=== PATIENT | female | born 1950 ===

== ENCOUNTER 2021-04-13 16:42 | Observation (INO) ==
[2021-04-13] MEDS ORDERED: DOCUSATE SODIUM 100 MG CAPSULE PO PRN (23:06)
[2021-04-13] MEDS ORDERED: ONDANSETRON 4 MG/2 ML VIAL IV PRN (23:06)
[2021-04-13] MEDS ORDERED: GLUCAGON 1 MG VIAL IM PRN (23:06)
[2021-04-13] MEDS ORDERED: DEXTROSE 50% 25 GM/50 ML VIAL IV PRN (23:06)
[2021-04-13] MEDS ORDERED: ENOXAPARIN 100 MG/ML SYRINGE SUBCUT ONE (23:56)
[2021-04-14] MEDS: MORPHINE 2 MG/1 ML SYRINGE IV PRN ×4 (00:15→21:05)
[2021-04-14] MEDS: ZALEPLON 5 MG CAPSULE PO PRN ×2 (00:15→23:06)
[2021-04-14] MEDS: CIPROFLOXACIN INJ 400 MG/200 ML PREMIX IV SCH ×2 (00:16→23:19)
[2021-04-14] MEDS: SODIUM CHLORIDE 0.9% 1,000 ML IV SCH ×2 (00:16→11:34)
[2021-04-14 05:29] LABS: Basophils % 0.3 % (0.0-0.8); Eosinophils # 0.2 10*3/uL (0.0-0.87); Hematocrit 32.1 VOL% (35.7-47.0); Hemoglobin 9.9 GM/DL (12.0-16.0); Immature Granulocytes % 0.3 %; Immature Granulocytes Absolute 0.04 #; Lymphocytes # 1.3 10*3/uL (1.4-4.0); Lymphocytes % 10.5 % (21.3-54.2); Mean Corpuscular HGB Conc 30.8 GM/DL (32-36); Mean Corpuscular Volume 91.5 FL (87-102); Mean Platelet Volume 10.8 FL (9.6-12.0); Monocytes % 10.1 % (1.7-12.7); Neutrophils % 76.8 % (38.7-73.9); Platelet Count 365 T/CUMM (130-400); Red Blood Count 3.51 MC/CUMM (3.8-5.5); Red Cell Distribution Width 14.5 % (9.3-17.3); White Blood Count 12.1 T/CUMM (4-12)
[2021-04-14 05:49] LABS: Calcium 8.1 MG/DL (8.5-10.1); Osmolality,Calculated 261.5 MOS/KG (273-304); Potassium 3.5 MMOL/L (3.5-5.1); Total Protein 5.9 G/DL (6.4-8.2)
[2021-04-14 05:49] LABS: INR 1.3; PT Patient Result 14.6 SECS (10.5-12.0); Partial Thromboplastin Time 38.3 SECS (23.9-33.8)
[2021-04-14] MEDS: LEVOTHYROXINE 50 MCG TABLET PO SCH (06:06)
[2021-04-14] MEDS: SERTRALINE 50 MG TABLET PO SCH (09:10)
[2021-04-14] MEDS ORDERED: ONDANSETRON 4 MG TABLET PO PRN (10:40)
[2021-04-14] MEDS ORDERED: LEVOTHYROXINE 50 MCG TABLET PO SCH (11:00)
[2021-04-14 11:42] LABS: Bacteria,Urine Occasional /HPF (Few); Bilirubin,Urine Negative (Negative); Blood, Urine Moderate mg/dL (Negative); Glucose,Urine (UA) Negative (Negative); Ketones,Urine 20 mg/dL (Negative); Mucus,Urine Occasional /LPF (Occasional); Nitrite,Urine Negative (Negative); Protein,Urine 30 MG/DL; RBC,Urine 9 /HPF (0-4); Urine Appearance Slightly Hazy (Clear); Urine Color Yellow (Yellow); Urine Specific Gravity 1.014 (1.001-1.035)
[2021-04-14] MEDS ORDERED: ceFAZolin 1,000 MG VIAL ONE (12:23)
[2021-04-14] MEDS ORDERED: DEXAMETHASONE 4 MG/1 ML VIAL ONE (12:24)
[2021-04-14] MEDS ORDERED: propofoL 200 MG/20 ML VIAL IV ONE (12:24)
[2021-04-14] MEDS ORDERED: LIDOCAINE 2% 5 ML VIAL ONE (12:24)
[2021-04-14] MEDS ORDERED: ONDANSETRON 4 MG/2 ML VIAL ONE (12:24)
[2021-04-14] MEDS ORDERED: SEVOFLURANE 1 UNIT/15 MINUTE INH ONE (12:38)
[2021-04-14] MEDS: SIMVASTATIN 40 MG TABLET PO SCH (18:25)
[2021-04-14] MEDS: ACETAMINOPHEN 325 MG TABLET PO PRN (18:25)
[2021-04-14] MEDS: APIXABAN 5 MG TABLET PO SCH (21:04)
[2021-04-15] MEDS: SODIUM CHLORIDE 0.9% 1,000 ML IV SCH ×3 (03:30→14:52)
[2021-04-15 05:17] LABS: Basophils % 0.2 % (0.0-0.8); Hematocrit 30.1 VOL% (35.7-47.0); Hemoglobin 9.8 GM/DL (12.0-16.0); Immature Granulocytes % 0.7 %; Immature Granulocytes Absolute 0.06 #; Lymphocytes # 0.8 10*3/uL (1.4-4.0); Lymphocytes % 8.5 % (21.3-54.2); Mean Corpuscular HGB Conc 32.6 GM/DL (32-36); Mean Corpuscular Volume 88.8 FL (87-102); Mean Platelet Volume 10.4 FL (9.6-12.0); Monocytes % 7.6 % (1.7-12.7); Platelet Count 356 T/CUMM (130-400); Red Blood Count 3.39 MC/CUMM (3.8-5.5); Red Cell Distribution Width 14.5 % (9.3-17.3); White Blood Count 9.2 T/CUMM (4-12)
[2021-04-15] MEDS: LEVOTHYROXINE 50 MCG TABLET PO SCH (05:28)
[2021-04-15 05:34] LABS: Calcium 7.9 MG/DL (8.5-10.1); Osmolality,Calculated 274.7 MOS/KG (273-304); Potassium 3.7 MMOL/L (3.5-5.1)
[2021-04-15 05:37] LABS: Albumin 1.9 G/DL (3.4-5.0); Calcium 8.1 MG/DL (8.5-10.1); Osmolality,Calculated 274.7 MOS/KG (273-304); Potassium 3.7 MMOL/L (3.5-5.1); Total Protein 5.9 G/DL (6.4-8.2)
[2021-04-15] MEDS: APIXABAN 5 MG TABLET PO SCH ×2 (08:14→20:38)
[2021-04-15] MEDS: SERTRALINE 50 MG TABLET PO SCH (08:14)
[2021-04-15] MEDS: HYDROmorphone 2 MG/1 ML VIAL IV PRN ×2 (13:44→21:53)
[2021-04-15] MEDS: SIMVASTATIN 40 MG TABLET PO SCH (19:12)
[2021-04-15] MEDS: CIPROFLOXACIN 500 MG TABLET PO SCH (20:38)
[2021-04-16] MEDS: SODIUM CHLORIDE 0.9% 1,000 ML IV SCH ×2 (00:46→23:45)
[2021-04-16] MEDS ORDERED: LACTULOSE 20 GM/30 ML UDCUP PO PRN (04:53)
[2021-04-16] MEDS ORDERED: SODIUM PHOSPHATE ENEMA 133 ML BOTTLE RECTAL ONE (05:30)
[2021-04-16] MEDS ORDERED: LEVOTHYROXINE 75 MCG TABLET PO SCH ×2 (06:00→10:40)
[2021-04-16 06:16] LABS: Basophils # 0.1 10*3/uL (0.0-0.2); Basophils % 0.4 % (0.0-0.8); Eosinophils # 0.4 10*3/uL (0.0-0.87); Eosinophils % 2.8 % (0.00-10.9); Hematocrit 33.9 VOL% (35.7-47.0); Hemoglobin 10.8 GM/DL (12.0-16.0); Immature Granulocytes % 0.6 %; Immature Granulocytes Absolute 0.08 #; Lymphocytes # 1.4 10*3/uL (1.4-4.0); Lymphocytes % 10.1 % (21.3-54.2); Mean Corpuscular HGB Conc 31.9 GM/DL (32-36); Mean Corpuscular Volume 90.4 FL (87-102); Mean Platelet Volume 9.9 FL (9.6-12.0); Monocytes % 10.6 % (1.7-12.7); Neutrophils % 75.5 % (38.7-73.9); Platelet Count 396 T/CUMM (130-400); Red Blood Count 3.75 MC/CUMM (3.8-5.5); Red Cell Distribution Width 14.9 % (9.3-17.3); White Blood Count 13.3 T/CUMM (4-12)
[2021-04-16 06:46] LABS: Calcium 8.2 MG/DL (8.5-10.1); Osmolality,Calculated 275.7 MOS/KG (273-304)
[2021-04-16] MEDS: CIPROFLOXACIN 500 MG TABLET PO SCH ×2 (08:42→21:16)
[2021-04-16] MEDS: APIXABAN 5 MG TABLET PO SCH ×2 (08:42→21:16)
[2021-04-16] MEDS: SERTRALINE 50 MG TABLET PO SCH (08:42)
[2021-04-16] MEDS: ACETAMINOPHEN 325 MG TABLET PO PRN ×2 (10:56→19:10)
[2021-04-16] MEDS: ZALEPLON 5 MG CAPSULE PO PRN ×2 (21:14→23:02)
[2021-04-16] MEDS: SIMVASTATIN 40 MG TABLET PO SCH (21:16)
[2021-04-17] MEDS: SODIUM CHLORIDE 0.9% 1,000 ML IV SCH ×2 (00:01→10:46)
[2021-04-17] MEDS: ACETAMINOPHEN 325 MG TABLET PO PRN (01:02)
[2021-04-17] MEDS: LEVOTHYROXINE 50 MCG TABLET PO SCH (05:44)
[2021-04-17 06:42] LABS: Calcium 8.4 MG/DL (8.5-10.1); Osmolality,Calculated 273.7 MOS/KG (273-304); Potassium 3.6 MMOL/L (3.5-5.1)
[2021-04-17] MEDS: CIPROFLOXACIN 500 MG TABLET PO SCH (08:15)
[2021-04-17] MEDS: APIXABAN 5 MG TABLET PO SCH (08:15)
[2021-04-17] MEDS: SERTRALINE 50 MG TABLET PO SCH (08:15)
[2021-04-17] MEDS ORDERED: POLYETHYLENE GLYCOL POWDER 17 GM PACK PO SCH (09:00)
[2021-04-17 11:13] VITALS: BP 138/62
== END 2021-04-17 14:07 | disposition home health service (06) ==
LOC: N.5E → SUATTDRO 04-14 13:35
PROVIDERS: ADMIT Internal Medicine; ATTEND Internal Medicine Geriatric Medicine